=== PATIENT | female | born 1940 | race Hispanic/Latino ===

== ENCOUNTER → 2018-04-08 | Day surgery (SDC) | payer MEDICARE ==
[2017-11-27 14:21] VITALS: BMI 24.4
[~2018-04-08] MED LIST: Propofol 10 mg/ml Inj (20 ML) ONE; Sodium Chloride 0.9% 1,000 ML IV SCH
[2018-04-08 15:23] VITALS: TEMP 98
[2018-04-08 16:45] VITALS: BP 123/59; PULSE 68; RESP 18; O2SAT 98
== END | disposition home or self-care (01) ==
LOC: ENDO 12:33
PROVIDERS: ATTEND Internal Medicine Gastroenterology
DX: Z12.11 Encounter for screening for malignant neoplasm of colon (principal); Z86.010 Personal history of colon polyps; K64.8 Other hemorrhoids; K55.20 Angiodysplasia of colon without hemorrhage
CPT/HCPCS: 45388; J0295; J2704; J7030